=== PATIENT | female | born 1960 | race Two or more races ===

== ENCOUNTER 2017-09-04 08:06 | Day surgery (SDC) | payer BC ==
[2017-09-04] VITALS (7 sets, daily range): BP systolic 99–111; BP diastolic 61–71
[~2017-09-04] VITALS: Ht 162.6 cm; Wt 51.3 kg
--- NOTE | 2017-09-04 07:10 | Anethesia Preoperative Eval ---
Anesthesia Pre-op PMH/ROS General Date of Evaluation: Sep 04, 2017 Time of Evaluation: 07:10 Anesthesiologist: milind ASA Score: ASA 2 Mallampati Score Class I : Soft palate, uvula, fauces, pillars visible Class II: Soft palate, uvula, fauces visible Class III: Soft palate, base of uvula visible Class IV: Only hard plate visible Mallampati Classification: Class II Surgeon: neeru Diagnosis: colon screening Surgical Procedure: colonoscopy Anesthesia History: none Social History: smoking - former smoker Family History: no anesthesia problems Allergies: Coded Allergies: No Known Allergies (Unverified , 09/04/17) Medications: see eMAR Past Medical History Cardiovascular: Reports: other - hypercholesterolemia Anesthesia Pre-op Phys. Exam Physician Exam Constitutional: NAD Neurologic: CN 2-12 intact Cardiovascular: RRR Respiratory: CTA Gastrointestinal: S/NT/ND Airway Exam Mallampati Score: Class II MO: full Neck: supple TMD: 2fb ROM: full Anesthesia Pre-op A/P Risk Assessment & Plan Assessment: asa2 Plan: mac Status Change Before Surgery: No Pre-Antibiotics Drug: SADIE Plummer Sep 04, 2017 07:10
[2017-09-04] MEDS ORDERED: NKM (08:37)
[2017-09-04] MEDS ORDERED: LR 1000ml ONE (09:30)
[2017-09-04] MEDS ORDERED: Propofol 200mg/20ml IV ONE (09:30)
[2017-09-04] MEDS ORDERED: Lidocaine 1% MPF 10mg/ml 5ml ONE (09:30)
[2017-09-04] MEDS ORDERED: LR 1000ml 1,000 ML IVLG SCH (09:56)
[2017-09-04] MEDS ORDERED: DiphenhydrAMINE 50mg/ml Inj IVP PRN (10:00)
[2017-09-04] MEDS ORDERED: Atropine Inj 1mg/10ml Syr IV PRN (10:00)
[2017-09-04] MEDS ORDERED: fentaNYL 100 mcg/2 mL IV PRN (10:00)
[2017-09-04] MEDS ORDERED: Midazolam 2mg/2ml Inj IVP PRN (10:00)
--- NOTE | 2017-09-04 10:16 | Endoscopy Procedure Note ---
Endoscopy Procedure Note Indication for Procedure: screening Procedures Performed: colonoscopy Operative Findings/Diagnosis: rhoids Specimen: none Pt Tolerated Procedure Well: Yes Estimated Blood Loss: none Anesthesiologist: kam moody Anesthesia: MAC Medication Given: see anesthesia record Implant(s) used?: No 50 yrs or older w/o bx or poly: Yes 10yrs. F/U not recommended: Yes If not recommended, why?: 10 yrs. F/U needed: Yes 18 years or older w/prev. colo: No <3yrs. since last colonoscopy: No Med reason:<3 yrs.: Last colonoscopy >= to 3yrs: Yes - 10 year f/u recommended GERSON TRUJILLO Sep 04, 2017 10:16
--- NOTE | 2017-09-04 10:17 | Brief Operative Note ---
Immediate Post Operative Note Operative Note Chief Complaint: screen Procedure: colon Post-op Diagnosis: rhoid Surgeon: neeru Anesthesiologist: kam moody Anesthesia: moderate sedation Specimen: none Complications: none Condition: stable Fluids: see report Estimated Blood Loss: none Drains: none Implant(s) used?: No GERSON TRUJILLO Sep 04, 2017 10:17
--- NOTE | 2017-09-04 11:39 | Immediate Post-Op Evaluation ---
Immediate Post-Op Evalulation Immediate Post-Op Evalulation Procedure: colonoscopy Date of Evaluation: Sep 04, 2017 Time of Evaluation: 10:18 IV Fluids: 500ml lr Blood Products: none Estimated Blood Loss: negligible Blood Pressure Systolic: 108 Blood Pressure Diastolic: 72 Pulse Rate: 59 Respiratory Rate: 18 O2 Sat by Pulse Oximetry: 100 Temperature (Fahrenheit): 97.9 Pain Score (1-10): 0 Nausea: No Vomiting: No Complications none Patient Status: awake, reacts, patent Hydration Status: adequate Drug: SADIE Plummer Sep 04, 2017 11:39
--- NOTE | 2017-09-04 11:40 | 48 Hour Post Anesthesia Eval ---
Post Anesthesia Evaluation Procedure: colonoscopy Date of Evaluation: Sep 04, 2017 Time of Evaluation: 10:20 Blood Pressure Systolic: 111 0: 66 Pulse Rate: 55 Respiratory Rate: 18 Temperature (Fahrenheit): 97.9 O2 Sat by Pulse Oximetry: 99 Airway: patent Nausea: No Vomiting: No Pain Intensity: 0 Hydration Status: adequate Cardiopulmonary Status: stable Mental Status/LOC: patient returned to baseline Post-Anesthesia Complications: none Follow-up care needed: N/A SADIE BARNEY Sep 04, 2017 11:40
--- NOTE | 2017-09-04 20:46 | Procedure Note ---
DATE OF PROCEDURE: 09/04/2017 GASTROENTEROLOGY PROCEDURE REPORT SURGEON: Clive Fox M.D. PROCEDURE: Screening colonoscopy. PRE-ENDOSCOPIC DIAGNOSIS: Screening. POST-ENDOSCOPIC DIAGNOSIS: Internal hemorrhoids. DESCRIPTION OF PROCEDURE: The procedure, its risks, indications, alternatives, and possible complications were explained and informed consent was obtained. The patient was then sedated and rectal exam was done. The colonoscope was then introduced into the rectum and advanced to the terminal ileum. The terminal ileum and the colonic mucosa were examined carefully and it was all normal. Retroflexed view of the rectum revealed mild internal hemorrhoids. The colonoscope was removed and the patient was sent to recovery in good condition. COMPLICATIONS: None. RECOMMENDATIONS: 1. High-fiber diet. 2. Outpatient followup. Thank you for asking me to participate in the care of this patient. Clive Fox M.D. DR: Julio JOB#: [id number] CC: Clive Fox M.D.; Fax#: [phone]
== END 2017-09-04 11:45 | disposition home or self-care (01) ==
LOC: GAS 08:06
DX: Z12.11 Encounter for screening for malignant neoplasm of colon (principal); K64.8 Other hemorrhoids; Z87.891 Personal history of nicotine dependence; E78.00 Pure hypercholesterolemia, unspecified
CPT/HCPCS: 45378; J2704; J7120; 94003; 94150